=== PATIENT | female | born 1995 | race African-American/Black ===

== ENCOUNTER 2019-11-08 09:27 | Emergency (ER) | payer BC, SELFPAY ==
--- NOTE | 2019-11-08 09:39 | PC.NURSE ---
X-ray is being repaired--patient wanted a chest xray so she left prior to being seen.
== END 2019-11-08 09:38 | disposition left against medical advice (07) ==
LOC: EXPCOLL 09:36
PROVIDERS: Emergency Provider Nurse Practitioner
DX: Z53.21 Procedure and treatment not carried out due to patient leaving prior to being seen by health care provider (principal)
CPT/HCPCS: 99199

== ENCOUNTER 2019-11-08 10:33 | Emergency (ER) | payer BC, SELFPAY ==
--- NOTE | ~2019-11-08 | XR_ITS ---
EXAMINATION: XR chest 2V DATE: 11/08/2019 11:46 INDICATION: Left chest pain. TECHNIQUE: Frontal and lateral views of the chest were obtained. COMPARISON: Chest 2 views 08/14/2018, CT abdomen and pelvis 08/08/2018 FINDINGS: The chest demonstrates clear lungs without pneumonia, pleural effusion, or pneumothorax. Th e heart size is normal. IMPRESSION: 1. No acute cardiopulmonary disease. Reviewed, dictated and finalized at location A. AND DETONATOR
[2019-11-08 10:42] VITALS: BP 150/87; PULSE 68; RESP 16; TEMP 36.6; O2SAT 99
--- NOTE | 2019-11-08 10:47 | ED.CHESTPAIN ---
HPI - Chest Pain General Chief Complaint: Chest Pain Stated Complaint: left sided cp Time Seen by Provider: 11/08/19 10:41 Source: patient and RN notes reviewed Mode of arrival: ambulatory Limitations: no limitations History of Present Illness HPI narrative: Pt is a 24 y/o female who presents to the ED with c/o intermittent left-sided chest pain which began yesterday morning. She states she is currently experiencing chest pain in the ED bed. Pt reports the pain is located underneath her left breast, but is like a pressure sensation. She states whenever she takes a deep breath, the pain is aggravated and radiates to her left upper back. Pt denies taking any pain medication for her symptoms. She also denies a burning sensation in her chest which could be due to GERD. However, pt reports a mild cough, but denies SOB upon exertion, a fever, wheezing, dizziness, lightheadedness, ABD pain, BLE edema, or BLE pain. She reports blurry vision, but states it could be due to her stigmatism. Pt reports a PMHx of PCOS which she is currently on medication for. She denies being on any control. Pt also reports a PMHx of asthma and cholecystectomy. MD complaint: chest pain (left-sided) Pertinent past history: other (none) Onset (ago): day(s) (yesterday morning) Timing of current episode: episodic Prior episodes: No Onset: during rest Pain location: left chest (located underneath left breast) Pain radiation: back (left upper back) Quality: other (pressure) Relieving factors: nothing Exacerbating factors: nothing Associated symptoms: other (mild cough) Related Data Home Medications Medication Instructions Recorded Confirmed albuterol sulfate 2 puff INHALATION QID PRN 08/10/19 11/08/19 metformin 2,000 mg PO DAILY 11/08/19 11/08/19 Allergies Allergy/AdvReac Type Severity Reaction Status Date / Time Fish Containing Products Allergy Severe Anaphylactic Verified 11/08/19 09:32 Shock nicardipine Allergy Mild RASH Verified 11/08/19 09:32 Review of Systems Review of Systems: All systems reviewed & are unremarkable except as noted in HPI and below Constitutional: Constitutional: Denies fever(s) Cardiovascular: Cardiovascular: Reports chest pain (left-sided chest pain located underneath left breast) and Denies leg edema (BLE) Respiratory: Respiratory: Reports cough (mild), Denies dyspnea (upon exertion) and Denies wheezing Gastrointestinal: Gastrointestinal: Denies abdominal pain Musculoskeletal: Musculoskeletal: Denies other (BLE pain) Neurologic: Denies dizziness and Denies other (lightheadedness) [facility] Past Medical History Medical History (Updated 11/08/19 @ 14:28 by Stacey Marcus MD) Asthma Gallbladder disease PCOS (polycystic ovarian syndrome) Surgical History Surgical History (Updated 08/10/19 @ 17:01 by Denise Wilcox) History of cholecystectomy Social History Social History (Updated 08/10/19 @ 17:02 by Denise Wilcox) Smoking status: Never smoker Alcohol intake: current Substance use: never 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 obese HEAD: Normocephalic, atraumatic EYES: PERRLA and EOMI, conjunctiva clear without discharge THROAT:Mucous membranes moist, Oropharynx normal without erythema, exudate, peritonsillar swelling or fluctuance NECK: Supple, without lymphadenopathy or mass RESPIRATORY: No respiratory distress, Airway patent, Respirations non-labored, Clear to auscultation without rales, rhonchi or wheeze, left anterior chest tenderness HEART: Regular rate and rhythm. No murmur heard. Normal peripheral pulses. ABDOMEN: Soft, nontender, nondistended, normal active bowel sounds. No masses. No rebound or guarding, No organomegaly. EXTREMITIES: No edema, normal strength with full range of gilda
--- NOTE | 2019-11-08 10:56 | ECG_ITS ---
Measurements Intervals [place] Rate: 70 P: -1 MS: 159 QRS: 43 QRSD: 98 T: 7 QT: 359 QTc: 388 Interpretive Statements SINUS RHYTHM BASELINE ARTIFACT- V1 NORMAL ECG Electronically Signed On 11-08-2019 11:45:24 SOLUTION SALES SENIOR EXECUTIVE by Martinez Ray D.O.
[2019-11-08 11:20] LABS: Basophils Percent Auto 0.3 % (0.2-1.2); Eosinophils Absolute Auto 0.3 K/mm3 (0-0.3); Eosinophils Percent Auto 5.1 % (0-4.4); Hematocrit 43.1 % (37.0-47.0); Hemoglobin 13.7 g/dL (12.0-15.0); Immature Granulocyte Absolute 0.02 K/mm3 (0.00-0.031); Immature Granulocyte Percent A 0.3 % (0-0.5); Lymphocytes Absolute Auto 2.84 K/mm3 (0.9-3.2); Lymphocytes Percent Auto 45.2 % (18.3-44.2); Mean Corpuscular HGB Conc 31.8 g/dl (32-36); Mean Corpuscular Hemoglobin 26.7 pg (26-34); Mean Platelet Volume 9.1 fl (7.4-10.4); Monocytes Absolute Auto 0.4 K/mm3 (0.1-0.6); Monocytes Percent Auto 5.9 % (2.6-8.5); Neutrophils Absolute Auto 2.7 K/mm3 (1.3-6.7); Neutrophils Percent Auto 43.2 % (45.5-73.1); Platelet Count Result 278 k/mm3 (150-375); Red Blood Count 5.13 M/mm3 (4.2-5.4); Red Cell Distribution Width 13.6 % (11.5-14.5); White Blood Count 6.3 K/mm3 (4.5-10.0)
[2019-11-08 11:30] LABS: Partial Thromboplastin Time 26.9 SECONDS (22.3-36.8); Prothrombin Time 12.7 Seconds (11.1-14.7)
[2019-11-08 11:36] LABS: D Dimer 0.27 ug/mL (<0.48)
[2019-11-08 11:37] LABS: Blood Urea Nitrogen 11 mg/dL (7-17); Calcium 9.4 mg/dL (8.4-10.2); Carbon Dioxide 25 mmol/L (22-30); Chloride 102 mmol/L (98-107); Estimated CRCL calculation 120 ml/min; Estimated Glomerular Filt Rate > 60; Glucose 101 mg/dL (65-105); Potassium 4.2 mmol/L (3.4-5.0); Sodium 139 mmol/L (137-145)
[2019-11-08 11:48] LABS: Troponin I < 0.012 ng/mL (0.000-0.034)
[2019-11-08 13:35] VITALS: BP 133/85; PULSE 68; RESP 20; O2SAT 100
[2019-11-08 14:12] LABS: Troponin I < 0.012 ng/mL (0.000-0.034)
[2019-11-08 14:41] VITALS: BP 121/93; PULSE 66; RESP 14; O2SAT 99
== END 2019-11-08 14:42 | disposition home or self-care (01) ==
PROVIDERS: Emergency Provider General Practice
DX: R07.89 Other chest pain (principal); J45.909 Unspecified asthma, uncomplicated
CPT/HCPCS: 36415; 71046; 80048; 84484; 85025; 85380; 85610; 85730; 93005; 99284

== ENCOUNTER 2019-11-22 17:59 | Emergency (ER) | payer BC, SELFPAY ==
--- NOTE | ~2019-11-22 | CT_ITS ---
EXAMINATION: CT BRAIN W/O DATE: 11/22/2019 18:25 INDICATION: Headache after trauma TECHNIQUE: Computed tomography (CT) of the head was performed without intravenous contrast. The dose- length product was 605.33 mGy-cm. The mA was adjusted according to patient size. Iterative reconstruc tion technique was employed. COMPARISON: No prior studies for comparison. FINDINGS: Normal brain parenchymal volume for age. Normal sofia-white differentiation. No acute intrac ranial hemorrhage, infarction, mass or mass effect. No ventriculomegaly or midline shift. Midline sagittal images demonstrate a normal corpus callosum, c raniovertebral junction and sella turcica. Basilar cisterns are patent. There is mucosal thickening of the left maxillary, ethmoid and frontal sinuses. No depressed skull fr actures. Mastoids are pneumatized. IMPRESSION: 1. No acute intracranial abnormality. 2: Sinusitis. Reviewed, dictated and finalized at location A.
[2019-11-22 18:08] VITALS: BP 146/88; PULSE 86; RESP 19; TEMP 36.8; O2SAT 99
--- NOTE | 2019-11-22 18:08 | ED.SYNCOPE ---
HPI - Syncope General Chief Complaint: Syncope Stated Complaint: Syncope Time Seen by Provider: 11/22/19 18:02 Source: patient Mode of arrival: ambulatory Limitations: no limitations History of Present Illness HPI narrative: A 24 y/o female presents to the ED with c/o syncope. She states that today she was sitting watching television with her mother when she suddenly blacked out. Pt adds that she was laughing hysterically when she lost consciousness. She notes that she woke up on the floor and hit her head on a coffee table. Pt has no prior history of syncope. She reports AMADOR and nausea. Her LNMP was 11/23/2019. She has a PMHx of asthma and is a nonsmoker. complaint: loss of consciousness Onset (ago): hour(s) (Today) Prodromal symptoms: none Witnessed: Yes - by Bystander (Mother) Context: at rest (Laughing) Injuries sustained associated with event: head Current symptoms: headache and nausea Related Data Home Medications Medication Instructions Recorded Confirmed albuterol sulfate 2 puff INHALATION QID PRN 08/10/19 11/08/19 Allergies Allergy/AdvReac Type Severity Reaction Status Date / Time Fish Containing Products Allergy Severe Anaphylactic Verified 11/22/19 18:12 Shock Review of Systems Review of Systems: All systems reviewed & are unremarkable except as noted in HPI and below Gastrointestinal: Gastrointestinal: Reports nausea Neurologic: Reports headache(s) and Reports other (HI, syncope) [facility] Past Medical History Medical History Asthma Gallbladder disease PCOS (polycystic ovarian syndrome) Surgical History Surgical History History of cholecystectomy Social History Social History Smoking status: Never smoker Alcohol intake: current Substance use: never 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 Musculoskeletal: Normal range of motion, nontender back Neurologic: Alert and oriented ?3, JAVA LEAD DEVELOPER is normal as tested, no gross motor deficit Course Course Emergency Course: Stable, denying any symptoms Vital Signs Vital signs: Vital Signs Temperature 36.8 C 11/22/19 18:08 Pulse Rate 86 11/22/19 18:08 Respiratory Rate 19 11/22/19 18:08 Blood Pressure 146/88 H 11/22/19 18:08 Pulse Oximetry 99 11/22/19 18:08 Temperature 36.8 C 11/22/19 18:08 Pulse Rate 86 11/22/19 18:08 Respiratory Rate 19 11/22/19 18:08 Blood Pressure 146/88 H 11/22/19 18:08 Pulse Oximetry 99 11/22/19 18:08 MDM - Syncope MDM Narrative Medical decision making narrative: Laughing inducing vasovagal syncope is my concern. Patient does not have any risk factor for coronary artery disease or neurologic disease. The syncope occurred immediately after strenuous laughing. Lasted for 1 to 2 seconds then resolved. Labs, CT head ordered. Further plan to follow Lab Data Result diagrams: 11/22/19 18:53 11/22/19 18:53 Labs: Lab Results 11/22/19 11/22/19 11/22/19 Range/Units 18:43 18:53 18:53 WBC
--- NOTE | 2019-11-22 18:13 | ECG_ITS ---
Measurements Intervals [place] Rate: 81 P: 34 MD: 176 QRS: 33 QRSD: 98 T: -1 QT: 356 QTc: 414 Interpretive Statements SINUS RHYTHM MINIMAL Q WAVES- INFERIOR LEADS BORDERLINE T WAVE ABNORMALITY- INFERIOR LEADS BORDERLINE ECG Electronically Signed On 11-22-2019 21:06:46 CDT by Martinez Ray D.O.
[2019-11-22 18:54] LABS: Add Urine Microscopic? YES; Appearance Urine Clear (Clear); Bacteria Urine Trace /hpf; Bilirubin Urine Negative (Negative); Blood Urine Negative (Negative); Color Urine Yellow (Yellow); Glucose Urine UA Negative (Negative); Ketones Urine Negative (Negative); Leukocyte Esterase Ur Negative LEU/UL (Negative); Mucus Urine Rare /lpf; Nitrate Urine Negative (Negative); Protein Urine Negative (Negative); RBC Urine 0-2 /hpf (0-2); Specific Grav Ur 1.027 (1.001-1.035); Squamous Epithelial Cell Urine Many /hpf (Few); Urobilinogen Urine Negative mg/dL (<2.0); WBC Urine 0-3 /hpf
[2019-11-22 18:59] LABS: Basophils Percent Auto 0.4 % (0.2-1.2); Eosinophils Absolute Auto 0.3 K/mm3 (0-0.3); Immature Granulocyte Absolute 0.01 K/mm3 (0.00-0.031); Immature Granulocyte Percent A 0.1 % (0-0.5); Lymphocytes Absolute Auto 3.79 K/mm3 (0.9-3.2); Lymphocytes Percent Auto 45.8 % (18.3-44.2); Mean Corpuscular HGB Conc 32.5 g/dl (32-36); Mean Corpuscular Hemoglobin 26.9 pg (26-34); Mean Corpuscular Volume 82.8 fl (80-100); Mean Platelet Volume 9.1 fl (7.4-10.4); Monocytes Absolute Auto 0.6 K/mm3 (0.1-0.6); Monocytes Percent Auto 7.4 % (2.6-8.5); Neutrophils Absolute Auto 3.6 K/mm3 (1.3-6.7); Neutrophils Percent Auto 43.3 % (45.5-73.1); Platelet Count Result 288 k/mm3 (150-375); Red Blood Count 4.83 M/mm3 (4.2-5.4); Red Cell Distribution Width 13.4 % (11.5-14.5); White Blood Count 8.3 K/mm3 (4.5-10.0)
[2019-11-22 19:11] LABS: Alanine Aminotransferase 36 U/L (4-35); Albumin Level 4.2 g/dL (3.5-5.1); Alkaline Phosphatase 56 U/L (38-126); Aspartate Amino Transferase 34 U/L (14-36); Bilirubin,Total 0.7 mg/dL (0.2-1.3); Blood Urea Nitrogen 14 mg/dL (7-17); Calcium 9.2 mg/dL (8.4-10.2); Carbon Dioxide 23 mmol/L (22-30); Chloride 106 mmol/L (98-107); Estimated CRCL calculation 125 ml/min; Estimated Glomerular Filt Rate > 60; Glucose 93 mg/dL (65-105); Potassium 4.1 mmol/L (3.4-5.0); Sodium 138 mmol/L (137-145)
[2019-11-22 19:51] VITALS: BP 130/77; PULSE 83; RESP 17; O2SAT 99
== END 2019-11-22 19:52 | disposition home or self-care (01) ==
PROVIDERS: Emergency Provider Emergency Medicine
DX: S09.90XD Unspecified injury of head, subsequent encounter (principal); J45.909 Unspecified asthma, uncomplicated; W22.03XA Walked into furniture, initial encounter
CPT/HCPCS: 36415; 70450; 80053; 81001; 81025; 85025; 93005; 99284

== ENCOUNTER 2020-03-08 15:51 | Outpatient (CLI) | payer BC, SELFPAY ==
--- NOTE | ~2020-03-08 | US_ITS ---
EXAMINATION: US OB <= 14 weeks fetus DATE: 03/08/2020 16:24 INDICATION: viability assessment during first trimester TECHNIQUE: Real-time pelvic transabdominal and transvaginal ultrasound was performed. COMPARISON: None. FINDINGS: The uterus measures 13.4 x 6.2 x 6.1 cm. There is an intrauterine gestational sac. A yolk sac is identified. heart motion is identified measuring 159 beats per minute (bpm) by M-mode Do ppler. The crown rump length measures 4.2 cm , which correlates with an estimated gestational a ge of 11 weeks and 0 day(s) (+/-) 7 day(s). The ovaries are not visualized however no adnexal abnormality is seen. There is no free fluid in the pelvis. IMPRESSION: 1. Live intrauterine with an estimated gestational age of 11 weeks and 0 day(s) (+/-) 7 day (s) and an estimated delivery date of 09/27/2020. Reviewed, dictated and finalized at location A. IMPRESSION: 1. Live intrauterine with an estimated gestational age of 11 weeks an d 0 day(s) (+/-) 7 day(s) and an estimated delivery date of 09/27/2020.
== END 2020-03-08 15:52 | disposition home or self-care (01) ==
PROVIDERS: Visit Provider Obstetrics & Gynecology Gynecology
DX: Z36.9 Encounter for antenatal screening, unspecified (principal); Z3A.11 11 weeks gestation of pregnancy
CPT/HCPCS: 76801

== ENCOUNTER 2020-06-25 20:38 | Observation (INO) | payer BC, SELFPAY ==
[2020-06-25 20:54] VITALS: BP 128/62; PULSE 94
[2020-06-25 21:01] VITALS: BP 104/67; PULSE 98
[2020-06-25 21:15] VITALS: BP 132/65; PULSE 86
[2020-06-25 21:30] VITALS: BP 119/62; PULSE 86
[2020-06-25 21:33] VITALS: BMI 69.9
[2020-06-25 21:36] LABS: Add Urine Microscopic? YES; Appearance Urine Clear (Clear); Bilirubin Urine Negative (Negative); Blood Urine Negative (Negative); Color Urine Yellow (Yellow); Glucose Urine UA Negative (Negative); Ketones Urine Trace mg/dL (Negative); Leukocyte Esterase Ur Negative LEU/UL (Negative); Mucus Urine Rare /lpf; Nitrate Urine Negative (Negative); Protein Urine Negative (Negative); RBC Urine 0-2 /hpf (0-2); Specific Grav Ur 1.024 (1.001-1.035); Squamous Epithelial Cell Urine Many /hpf (Few); Urobilinogen Urine Negative mg/dL (<2.0); WBC Urine 0-3 /hpf
--- NOTE | 2020-06-25 22:06 | PC.NURSE ---
2037- pt came in c/o left side pain that happened for about 10 minutes today while she was shopping. no vaginal bleeding, good movement per mom, no current pain/contractions. pt states this happened about 2 weeks ago also while she was shopping and subsided 2138- called Dr. Burk. informed of pt admission. UA results reviewed. FHT reviewed. OK to d/c pt home. pt to f/u in office at regular scheduled appt.
--- NOTE | 2020-06-28 14:15 | P.PNOB_ITS ---
OB - Triage/Final Diagnosis Visit Information Reason for evaluation: other (cramping) Evaluation Laboratory results: Laboratory Tests 06/25/20 21:24 Urine Color Yellow Urine Appearance Clear Urine pH 5.0 Ur Specific [place] 1.024 Urine Protein Negative Urine Glucose (UA) Negative Urine Ketones Trace Ur Blood (Man) Negative Urine Nitrate Negative Urine Bilirubin Negative Urine Urobilinogen Negative Leukocyte Esterase Rfl Negative Urine RBC 0-2 Urine WBC 0-3 Ur Squamous Epith Cells Many H Urine Mucus Rare
== END 2020-06-25 21:55 | disposition home or self-care (01) ==
PROVIDERS: Admitting Provider Obstetrics & Gynecology Gynecology; Visit Provider Obstetrics & Gynecology Gynecology
DX: O26.899 Other specified pregnancy related conditions, unspecified trimester (principal); R10.9 Unspecified abdominal pain; Z3A.00 Weeks of gestation of pregnancy not specified
CPT/HCPCS: 81001; G0378; G0379

== ENCOUNTER 2020-08-03 13:00 | Outpatient (NON) | payer BC, SELFPAY ==
[2020-08-05 16:41] LABS: SARS-CoV-2 RNA PCR Negative
== END 2020-08-03 13:01 ==
LOC: ANHCOVIDDT 13:03
PROVIDERS: Visit Provider Obstetrics & Gynecology Gynecology
DX: R68.89 Other general symptoms and signs (principal); Z20.828 Contact with and (suspected) exposure to other viral communicable diseases
CPT/HCPCS: 87635; C9803; U0003

== ENCOUNTER 2020-09-04 12:30 | Outpatient (RCR) | payer BC, SELFPAY ==
[2020-08-26 18:01] VITALS: BP 113/57; PULSE 88
--- NOTE | ~2020-09-04 | US_ITS ---
EXAMINATION: US OB limited w BPP EXAM DATE: 08/26/2020 17:57 INDICATION: AXEL and BPP. Gestational diabetes. 3rd trimester. TECHNIQUE: Pelvic obstetrical transabdominal sonogram was performed by a technologist. There are mu ltiple grayscale and Doppler images available for interpretation. There are no earlier studies of th is gestation for comparison. FINDINGS: There is a single fetus identified in vertex presentation with a heart rate of 163 beats pe r minute. The placenta is located in the fundal position. There is no sonographic evidence of retrop lacental hemorrhage identified. 11.0 BIOPHYSICAL PROFILE (performed by the technologist) breathing (30 sec sustained breathing in 30 minutes): 2 out of 2 movement (3 gross body movements in 30 minutes): 2 out of 2 tone (one episode of tbuejyt-wjmqraljy-nakutnx limb movement): 2 out of 2 Amniotic fluid pocket (2 cm): 2 out of 2 Total score: 8 out of 8 IMPRESSION: 1. Single fetus with heart rate of 163 bpm. 2. Normal biophysical profile score of 8 out of 8. Reviewed, dictated and finalized at location A. GRAPH SERVICE CLERK
--- NOTE | ~2020-09-04 | US_ITS ---
EXAMINATION: US OB BPP wo non-stress DATE: 09/04/2020 13:43 INDICATION: tachycardia, gestational diabetes, third trimester TECHNIQUE: Real-time pelvic ultrasound was performed. The interpreting radiologist was not present fo r the study. COMPARISON: 08/26/2020 FINDINGS: There is a single living fetus in vertex presentation. The placenta is fundal. heart rate is 18 1 beats per minute (bpm). On some images, there appears to be a hydrocele in the right scrotum. Biophysical profile performed by the technologist: breathing (30 sec sustained breathing in 30 minutes): 2 out of 2 movement (3 gross body movements in 30 minutes): 2 out of 2 tone (one episode of zobjyua-bakxhpphu-qkjvirc limb movement): 2 out of 2 Amniotic fluid pocket (2 cm): 2 out of 2 Total score: 8 out of 8 IMPRESSION: 1. Single living fetus in vertex presentation. 2. Biophysical profile 8 out of 8. 3. heart rate average of 181 bpm. 4. Possible hydrocele. Reviewed, dictated and finalized at location A. ICAL AUDITOR
[2020-09-04 13:08] VITALS: BP 133/69; PULSE 95
--- NOTE | 2020-09-04 14:06 | PC.NURSE ---
SPoke with Dr. Burk, NST reactive and BPP 04/20. Orders to discharge to home.
== END 2020-09-16 07:54 | disposition home or self-care (01) ==
LOC: ANHOBOP 12:30
PROVIDERS: Visit Provider Obstetrics & Gynecology Gynecology
DX: O24.419 Gestational diabetes mellitus in pregnancy, unspecified control (principal); Z3A.35 35 weeks gestation of pregnancy; Z3A.37 37 weeks gestation of pregnancy
CPT/HCPCS: 59025; 76815; 76819

== ENCOUNTER 2020-09-09 15:37 | Inpatient (IN) | payer BC, SELFPAY ==
[2020-09-09] VITALS (14 sets, daily range): BP systolic 118–159; BP diastolic 50–105; PULSE 77–126; TEMP 36.6–36.9; BMI 70.9
--- NOTE | 2020-09-09 15:37 | LDADM ---
This patient, Joleen Deutsch, was admitted to Labor/Delivery/Recovery 108 on 09/09/20 at 15:37. Plans for labor, pain management and were discussed with patient. Patient/family oriented to hospital policies and general routines including ID bracelet, bed and alarms, visiting hours, pain management, procedures, bathroom and other care routines, personal items, smoking policy, room service/diet and guest tray routines, security routines, and visiting hours. Patient/Family are encouraged to report perceived risks to care and to ask questions if they do not understand what they are told or what they should do. See OBIX for further documentation.
[2020-09-09 16:40] LABS: Basophils Percent Auto 0.2 % (0.2-1.2); Eosinophils Absolute Auto 0.2 K/mm3 (0-0.3); Eosinophils Percent Auto 2.4 % (0-4.4); Hematocrit 35.7 % (37.0-47.0); Hemoglobin 11.7 g/dL (12.0-15.0); Immature Granulocyte Absolute 0.03 K/mm3 (0.00-0.031); Immature Granulocyte Percent A 0.3 % (0-0.5); Lymphocytes Absolute Auto 2.33 K/mm3 (0.9-3.2); Lymphocytes Percent Auto 23.6 % (18.3-44.2); Mean Corpuscular HGB Conc 32.8 g/dl (32-36); Mean Corpuscular Hemoglobin 26.7 pg (26-34); Mean Corpuscular Volume 81.3 fl (80-100); Mean Platelet Volume 9.6 fl (7.4-10.4); Monocytes Absolute Auto 0.5 K/mm3 (0.1-0.6); Monocytes Percent Auto 5.1 % (2.6-8.5); Neutrophils Absolute Auto 6.7 K/mm3 (1.3-6.7); Neutrophils Percent Auto 68.4 % (45.5-73.1); Platelet Count Result 317 k/mm3 (150-375); Red Blood Count 4.39 M/mm3 (4.2-5.4); White Blood Count 9.9 K/mm3 (4.5-10.0)
[2020-09-09] MEDS: LACTATED RINGERS 1,000 ML 125 ML IV CONT (16:45)
[2020-09-09 16:55] LABS: Alanine Aminotransferase 18 U/L (4-35); Albumin Level 3.6 g/dL (3.5-5.1); Alkaline Phosphatase 161 U/L (38-126); Anion Gap 8 mmol/L (8-16); Aspartate Amino Transferase 30 U/L (14-36); Bilirubin,Total 0.8 mg/dL (0.2-1.3); Blood Urea Nitrogen 9 mg/dL (7-17); Calcium 9.3 mg/dL (8.4-10.2); Carbon Dioxide 21 mmol/L (22-30); Chloride 104 mmol/L (98-107); Estimated CRCL calculation 166 ml/min; Estimated Glomerular Filt Rate > 60; Glucose 93 mg/dL (65-105); Potassium 4.2 mmol/L (3.4-5.0); Sodium 133 mmol/L (137-145); Uric Acid 5.7 mg/dL (2.5-7.5)
[2020-09-09] MEDS: DINOPROSTONE 10 MG VAG INSERT VAGINAL (17:11)
[2020-09-09 18:04] LABS: Add Urine Microscopic? YES; Appearance Urine Cloudy (Clear); Bacteria Urine Trace /hpf; Bilirubin Urine Negative (Negative); Blood Urine Negative (Negative); Color Urine Yellow (Yellow); Glucose Urine UA Negative (Negative); Ketones Urine Negative (Negative); Leukocyte Esterase Ur Negative LEU/UL (NEGATIVE); Mucus Urine Rare /lpf; Nitrate Urine Negative (Negative); Protein Urine Negative (Negative); RBC Urine 0-2 /hpf (0-2); Specific Grav Ur 1.013 (1.001-1.035); Squamous Epithelial Cell Urine Many /hpf (Few); Urobilinogen Urine Negative mg/dL (<2.0); WBC Urine 0-3 /hpf (0-3)
--- NOTE | 2020-09-09 18:47 | WPDANESEPP ---
Anes - Eval Pre Procedure Procedure: Labor epidural Date/Time: 09/09/20 18:47 Surgeon: Bhargavi Preop Diagnosis: pain during labor Pre Op Diagnosis: IOL Patient Data Age: 25 Gender: F Height: 1.56 m Weight: 173 kg Last Vital Signs Temp 36.6 C 09/09/20 17:00 Pulse 88 09/09/20 18:46 BP 140/75 09/09/20 18:46 Allergies Allergy/AdvReac Type Severity Reaction Status Date / Time Fish Containing Products Allergy Severe Anaphylactic Verified 09/04/20 13:51 Shock Home Medications Medication Instructions Recorded Confirmed Type albuterol sulfate 2 puff INHALATION QID PRN 08/10/19 09/09/20 History Novolin N NPH U-100 Insulin 92 unit SUBCUT HS 06/25/20 09/09/20 History [id number] 1 tablet PO DAILY 09/09/20 09/09/20 History [] Laboratory Tests 09/09/20 09/09/20 09/09/20 16:32 16:32 16:34 WBC 9.9 K/mm3 K/mm3 (4.5-10.0) RBC 4.39 M/mm3 M/mm3 (4.2-5.4) Hgb 11.7 g/dL L g/dL (12.0-15.0) Hct 35.7 % L % (37.0-47.0) MCV 81.3 fl fl (80-100) MCH 26.7 pg pg (26-34) MCHC 32.8 g/dl g/dl (32-36) RDW 15.0 % H % (11.5-14.5) Plt Count 317 k/mm3 k/mm3 (150-375) MPV 9.6 fl fl (7.4-10.4) Immature Gran % (Auto) 0.3 % % (0-0.5) Neut % (Auto) 68.4 % % (45.5-73.1) Lymph % (Auto) 23.6 % % (18.3-44.2) [place] % (Auto) 5.1 % % (2.6-8.5) Eos % (Auto) 2.4 % % (0-4.4) Baso % (Auto) 0.2 % % (0.2-1.2) Lymph # (Auto) 2.33 K/mm3 K/mm3 (0.9-3.2) [place] # (Auto) 0.5 K/mm3 K/mm3 (0.1-0.6) Eos # (Auto) 0.2 K/mm3 K/mm3 (0-0.3) Baso # (Auto) 0.0 K/mm3 K/mm3 (0.0-0.1) Abs Immat Gran (auto) 0.03 K/mm3 K/mm3 (0.00-0.031) Absolute Neuts (auto) 6.7 K/mm3 K/mm3 (1.3-6.7) Absolute Nucleated RBC 0.0 K/mm3 K/mm3 (0.0-0.012) Nucleated RBC % 0.0 % % (0.0-0.2) Sodium 133 mmol/L L mmol/L (137-145) Potassium 4.2 mmol/L mmol/L (3.4-5.0) Chloride 104 mmol/L mmol/L (98-107) Carbon Dioxide 21 mmol/L L mmol/L (22-30) Anion Gap 8 mmol/L mmol/L (8-16) BUN 9 mg/dL D mg/dL (7-17) Creatinine 0.70 mg/dL mg/dL (0.7-1.0) Estim Creat Clear Calc 166 ml/min ml/min Estimated GFR > 60 (59 - ) Glucose 93 mg/dL mg/dL (65-105) Uric Acid 5.7 mg/dL mg/dL (2.5-7.5) Calcium 9.3 mg/dL mg/dL (8.4-10.2) Total Bilirubin 0.8 mg/dL mg/dL (0.2-1.3) AST 30 U/L U/L (14-36) ALT 18 U/L U/L (4-35) Alkaline Phosphatase 161 U/L H U/L (38-126) Total Protein 7.0 g/dL g/dL (6.3-8.2) Albumin 3.6 g/dL g/dL (3.5-5.1) Urine Color Urine Appearance Urine pH Ur Specific [place] Urine Protein Urine Glucose (UA) Urine Ketones Ur Blood (Man) Urine Nitrate Urine Bilirubin Urine Urobilinogen Ur Leukocyte Esterase Urine RBC Urine WBC Ur Squamous Epith Cells Urine Bacteria Urine Mucus RPR Pending Blood Type Antibody Screen 09/09/20 09/09/20 16:42 17:55 WBC RBC Hgb Hct MCV MCH MCHC RDW Plt Count MPV Immature Gran % (Auto) Neut % (Auto) Lymph % (Auto) [place] % (Auto) Eos % (Auto) Baso % (Auto) Lymph # (Auto) [place] # (Auto) Eos # (Auto) Baso # (Auto) Abs Immat Gran (auto) Absolute Neuts (auto) Absolute Nucleated RBC Nucleated RBC %
[2020-09-09 21:23] LABS: Glucose Point of Care 75 (65-105)
[2020-09-10] VITALS (27 sets, daily range): BP systolic 97–167; BP diastolic 51–94; PULSE 69–111; TEMP 36.2–37
[2020-09-10 03:21] LABS: Glucose Point of Care 78 (65-105)
[2020-09-10 03:21] LABS: Glucose Point of Care 79 (65-105)
[2020-09-10 03:21] LABS: Glucose Point of Care 69 (65-105)
[2020-09-10] MEDS: OXYTOCIN 30 UNITS/NS 500 ML 30 UNITS/500 ML BAG IV CONT (06:48)
--- NOTE | 2020-09-10 07:45 | WPDOBADMIT ---
Obstetrics - Admit Note Admission Note: record reviewed. No pertinent additions to the history and/or any subsequent changes in the physical findings that are not consistent with the expected course of the were found. Additions to the history and/or subsequent changes in the physical findings follow. Here from office for MIL. NST for GDMA2 was nonreactive with minimal variability and 3 late decels. Recommend delivery. Cervadil overnight. FHTs improved and have periods of reactivity. Cervix still Cl/50 so plan pitocin.
[2020-09-10 08:36] LABS: Glucose Point of Care 85 (65-105)
[2020-09-10 10:49] LABS: Rapid Plasma Reagin Non-Reactive (NonReactive)
[2020-09-10 14:47] LABS: Glucose Point of Care 83 (65-105)
[2020-09-10] MEDS: DINOPROSTONE 10 MG VAG INSERT VAGINAL (18:31)
[2020-09-10 18:58] LABS: Glucose Point of Care 137 (65-105)
[2020-09-10] MEDS: INSULIN HUMAN NPH (*BKC) 100 UNITS/ML 20 UNITS SUB-Q (21:54)
[2020-09-10 23:10] LABS: Glucose Point of Care 90 (65-105)
[2020-09-11] VITALS (239 sets, daily range): BP systolic 80–153; BP diastolic 25–95; PULSE 29–138; TEMP 36–37.3; O2SAT 94–100
[2020-09-11 05:55] LABS: Glucose Point of Care 92 (65-105)
--- NOTE | 2020-09-11 06:53 | P.PNOB_ITS ---
OB - PN: Subj Subjective Date/time seen: 09/11/20 06:53 Patient comments: no complaints OB - PN: Obj Data Labs CBC & Chem 7: 09/09/20 16:32 09/09/20 16:34 Labs: Laboratory Results - last 24 hr 09/09/20 09/10/20 09/10/20 16:32 08:33 14:43 POC Capillary Glucose 85 83 RPR Non-reactive 09/10/20 09/10/20 09/11/20 18:39 23:07 02:52 POC Capillary Glucose 137 H 90 92 RPR OB - PN A/P Assessment and Plan (1) 38 weeks gestation of : Code(s): Z3A.38 - 38 weeks gestation of Status: Acute (2) Encounter for induction of labor: Code(s): Z34.90 - Encounter for supervision of normal , unspecified, unspecified trimester Status: Acute Assessment and Plan: now 1 cm/th/-3 AROM with clear fluid FHTs reactive through much of day with random tachycardia runs and random varible decels Start pitocin (3) Gestational diabetes: Code(s): O24.419 - Gestational diabetes mellitus in , unspecified control Status: Acute (4) Morbid obesity with BMI of 70 and over, adult: Code(s): E66.01 - Morbid (severe) obesity due to excess calories; Z68.45 - Body mass index [BMI] 70 or greater, adult Status: Acute Time Spent With Patient Time: Total time spent is greater than 50% in coordination of care (as docum ented) at patient's floor/unit and/or counseling patient:
[2020-09-11 07:10] LABS: Glucose Point of Care 138 (65-105)
[2020-09-11] MEDS: LACTATED RINGERS 1,000 ML 125 ML IV CONT ×4 (08:10→23:35)
[2020-09-11] MEDS: OXYTOCIN 30 UNITS/NS 500 ML 30 UNITS/500 ML BAG IV CONT (08:10)
--- NOTE | 2020-09-11 09:27 | WPDANESEPP ---
Anes - Eval Pre Procedure Procedure: labor epidural Date/Time: 09/11/20 09:27 Surgeon: Bhargavi Preop Diagnosis: Abd pain with contractions Pre Op Diagnosis: IOL Patient Data Age: 25 Gender: F Height: 5 ft 1.5 in Weight: 173 kg Last Vital Signs Temp 98.9 F 09/11/20 02:51 Pulse 86 09/11/20 09:15 BP 118/67 09/11/20 09:15 Allergies Allergy/AdvReac Type Severity Reaction Status Date / Time Fish Containing Products Allergy Severe Anaphylactic Verified 09/04/20 13:51 Shock Home Medications Medication Instructions Recorded Confirmed Type albuterol sulfate 2 puff INHALATION QID PRN 08/10/19 09/09/20 History Novolin N NPH U-100 Insulin 92 unit SUBCUT HS 06/25/20 09/09/20 History rzjopxtv-qxh-Wn-FA 1 tablet PO DAILY 09/09/20 09/09/20 History [] Laboratory Tests 09/09/20 09/10/20 09/10/20 16:32 14:43 18:39 POC Capillary Glucose 83 mg/dl mg/dl 137 mg/dl H mg/dl (65-105) (65-105) RPR Non-reactive (NonReactive) 09/10/20 09/11/20 09/11/20 23:07 02:52 07:03 POC Capillary Glucose 90 mg/dl mg/dl 92 mg/dl mg/dl 138 mg/dl H mg/dl (65-105) (65-105) (65-105) RPR Patient hx anesthesia problems: none Family hx anesthesia problems: none PMFSH Past Medical History Medical History Asthma Gallbladder disease Gestational diabetes Morbid obesity with BMI of 70 and over, adult PCOS (polycystic ovarian syndrome) Surgical History Surgical History History of cholecystectomy Family History Family History Father Diabetes mellitus Mother Diabetes mellitus Sibling Diabetes mellitus Asthma Grandparent Lung cancer History of heart transplant Social History Social History Smoking status: Never smoker Second hand tobacco smoke exposure: No Alcohol intake: current Substance use: never 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
[2020-09-11 10:48] LABS: Glucose Point of Care 127 (65-105)
[2020-09-11] MEDS: SODIUM CHLORIDE 0.9% IV 300 ML 600 ML I-UTERINE (11:48)
[2020-09-11 14:15] LABS: Glucose Point of Care 122 (65-105)
[2020-09-11 18:02] LABS: Glucose Point of Care 106 (65-105)
[2020-09-11 18:02] LABS: Glucose Point of Care 99 (65-105)
[2020-09-11 22:11] LABS: Glucose Point of Care 84 (65-105)
[2020-09-12] VITALS (281 sets, daily range): BP systolic 40–165; BP diastolic 26–131; PULSE 25–139; TEMP 36.5–37.6; O2SAT 65–100
[2020-09-12] MEDS: AMPICILLIN 2 GM/NS 100 ML 2 GM/100 ML BAG IVPB (01:22)
[2020-09-12 02:34] LABS: Glucose Point of Care 97 (65-105)
[2020-09-12] MEDS: AMPICILLIN 1 GM/NS 50 ML 1 GM/50 ML BAG IVPB ×4 (05:18→22:14)
[2020-09-12 05:31] LABS: Glucose Point of Care 104 (65-105)
--- NOTE | 2020-09-12 07:40 | PM.OBPNVD ---
OB - PN: Subj Subjective Date/time seen: 09/12/20 07:40 Interval history: Epidural not working well. Patient in pain OB - PN: Obj Data Labs CBC & Chem 7: 09/09/20 16:32 09/09/20 16:34 Labs: Laboratory Results - last 24 hr 09/11/20 09/11/20 09/11/20 10:40 14:13 17:09 POC Capillary Glucose 127 H 122 H 99 09/11/20 09/11/20 09/12/20 17:58 22:03 02:26 POC Capillary Glucose 106 84 97 09/12/20 05:28 POC Capillary Glucose 104 OB - PN A/P Assessment and Plan (1) Encounter for induction of labor: Code(s): Z34.90 - Encounter for supervision of normal , unspecified, unspecified trimester Status: Acute Assessment and Plan: slow progress overnight will have epidual redosed continue pitocin FHTS reassuring (2) 38 weeks gestation of : Code(s): Z3A.38 - 38 weeks gestation of Status: Acute (3) Gestational diabetes: Code(s): O24.419 - Gestational diabetes mellitus in , unspecified control Status: Acute (4) Morbid obesity with BMI of 70 and over, adult: Code(s): E66.01 - Morbid (severe) obesity due to excess calories; Z68.45 - Body mass index [BMI] 70 or greater, adult Status: Acute Time Spent With Patient Time: Total time spent is greater than 50% in coordination of care (as documented) at patient's floor/unit and/or counseling patient: Exam Narrative: Exam Narrative: cervix /-2
[2020-09-12] MEDS: ONDANSETRON INJ 4 MG/2 ML VIAL IV PUSH ×3 (07:59→19:31)
[2020-09-12] MEDS: fentaNYL CITRATE INJ (*CRX) 100 MCG/2 ML VIAL IV PUSH (08:05)
[2020-09-12 08:16] LABS: Glucose Point of Care 127 (65-105)
[2020-09-12] MEDS: LACTATED RINGERS 1,000 ML 125 ML IV CONT ×2 (08:38→16:28)
[2020-09-12] MEDS: INSULIN HUMAN REGULAR (*BKC) 100 UNITS in SODIUM CHLORIDE 0.9% IV 99 ML IV CONT (09:00)
[2020-09-12 10:40] LABS: Glucose Point of Care 131 (65-105)
[2020-09-12 11:38] LABS: Glucose Point of Care 122 (65-105)
[2020-09-12 13:00] LABS: Glucose Point of Care 114 (65-105)
[2020-09-12 13:52] LABS: Glucose Point of Care 108 (65-105)
[2020-09-12 14:52] LABS: Glucose Point of Care 107 (65-105)
[2020-09-12 17:11] LABS: Glucose Point of Care 68 (65-105)
[2020-09-12 17:11] LABS: Glucose Point of Care 79 (65-105)
[2020-09-12 19:31] LABS: Glucose Point of Care 72 (65-105)
[2020-09-12 19:31] LABS: Glucose Point of Care 70 (65-105)
[2020-09-12 20:28] LABS: Glucose Point of Care 67 (65-105)
[2020-09-12 21:50] LABS: Glucose Point of Care 68 (65-105)
[2020-09-12 22:54] LABS: Glucose Point of Care 75 (65-105)
[2020-09-13] VITALS (85 sets, daily range): BP systolic 109–157; BP diastolic 60–108; PULSE 54–100; RESP 14–28; TEMP 36.6–37.3; O2SAT 92–100
[2020-09-13 00:23] LABS: Glucose Point of Care 59 (65-105)
[2020-09-13 01:30] LABS: Glucose Point of Care 76 (65-105)
[2020-09-13] MEDS: AMPICILLIN 1 GM/NS 50 ML 1 GM/50 ML BAG IVPB ×2 (02:16→06:20)
[2020-09-13 02:36] LABS: Glucose Point of Care 65 (65-105)
[2020-09-13 05:56] LABS: Glucose Point of Care 73 (65-105)
[2020-09-13] MEDS: LACTATED RINGERS 1,000 ML 125 ML IV CONT (07:32)
--- NOTE | 2020-09-13 07:38 | WPDANESEPP ---
Anes - Eval Pre Procedure Procedure: c section Date/Time: 09/13/20 07:38 Surgeon: sunday Preop Diagnosis: failure to descend Pre Op Diagnosis: IOL Patient Data Age: 25 Gender: F Height: 1.56 m Weight: 173 kg Last Vital Signs Temp 37.2 C 09/13/20 07:00 Pulse 89 09/13/20 07:15 BP 157/77 H 09/13/20 07:15 Pulse Ox 100 09/12/20 17:00 Allergies Allergy/AdvReac Type Severity Reaction Status Date / Time Fish Containing Products Allergy Severe Anaphylactic Verified 09/04/20 13:51 Shock Home Medications Medication Instructions Recorded Confirmed Type albuterol sulfate 2 puff INHALATION QID PRN 08/10/19 09/09/20 History Novolin N NPH U-100 Insulin 92 unit SUBCUT HS 06/25/20 09/09/20 History [id number]-[id number] 1 tablet PO DAILY 09/09/20 09/09/20 History [] Laboratory Tests 09/12/20 09/12/20 09/12/20 08:13 10:34 11:29 POC Capillary Glucose 127 mg/dl H mg/dl 131 mg/dl H mg/dl 122 mg/dl H mg/dl (65-105) (65-105) (65-105) 09/12/20 09/12/20 09/12/20 12:48 13:49 14:49 POC Capillary Glucose 114 mg/dl H mg/dl 108 mg/dl mg/dl 107 mg/dl mg/dl (65-105) (65-105) (65-105) 09/12/20 09/12/20 09/12/20 15:51 17:08 18:24 POC Capillary Glucose 79 mg/dl mg/dl 68 mg/dl mg/dl 70 mg/dl mg/dl (65-105) (65-105) (65-105) 09/12/20 09/12/20 09/12/20 19:26 20:24 21:35 POC Capillary Glucose 72 mg/dl mg/dl 67 mg/dl mg/dl 68 mg/dl mg/dl (65-105) (65-105) (65-105) 09/12/20 09/13/20 09/13/20 22:42 00:17 01:17 POC Capillary Glucose 75 mg/dl mg/dl 59 mg/dl L* mg/dl 76 mg/dl mg/dl (65-105) (65-105) (65-105) 09/13/20 09/13/20 02:20 05:39 POC Capillary Glucose 65 mg/dl mg/dl 73 mg/dl mg/dl (65-105) (65-105) Patient hx anesthesia problems: none Family hx anesthesia problems: none PMFSH Past Medical History Medical History Asthma Gallbladder disease Gestational diabetes Morbid obesity with BMI of 70 and over, adult PCOS (polycystic ovarian syndrome) Surgical History Surgical History History of cholecystectomy Family History Family History Father Diabetes mellitus Mother Diabetes mellitus Sibling Diabetes mellitus Asthma Grandparent Lung cancer History of heart transplant Social History Social History Smoking status: Never smoker Second hand tobacco smoke exposure: No Alcohol intake: current Substance use: never 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
[2020-09-13 07:45] LABS: Glucose Point of Care 78 (65-105)
[2020-09-13] MEDS: ceFAZolin 3 GM/D5W 100 ML 100 ML IVPB (08:39)
--- NOTE | 2020-09-13 10:56 | PM.IMHP ---
H&P: HPI History of Present Illness Date/Time: 09/13/20 10:56 Chief Complaint: failure to progress Narrative: Joleen Deutsch is a 25 year old female G1 at 38 weeks here for MIL on admit. Patient with slow progress and now no progress. Patient was offered a csection last pm per Dr. Hernandez and patient declined and wished to continue attempting MIL. Cervix 7/80/-2 at last exam. Patient decided this am with no further change to proceed with csection. complicated by GDMA2 (vs B) and gestational HTN with nonreassuring heart tracing prior to admit in office. 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 Gender identity (if verbalized by the patient): Female Spiritual care concerns: No Meds Home Medications and Allergies Home Medications Medication Instructions Recorded Confirmed Type albuterol sulfate 2 puff INHALATION QID PRN 08/10/19 09/09/20 History Novolin N NPH U-100 Insulin 92 unit SUBCUT HS 06/25/20 09/09/20 History [id number] 1 tablet PO DAILY 09/09/20 09/09/20 History [] Allergies Allergy/AdvReac Type Severity Reaction Status Date / Time Fish Containing Products Allergy Severe Anaphylactic Verified 09/04/20 13:51 Shock Vital Signs Vital Signs - 24 hr 09/12/20 11:00 09/12/20 11:05 09/12/20 11:10 Temperature Pulse Rate 77 Respiratory Rate Blood Pressure 156/93 H Pulse Oximetry 98 98 99 09/12/20 11:15 09/12/20 11:20 12/31/20 11:25 Temperature Pulse Rate 78 Respiratory Rate Blood Pressure 131/48 L Pulse Oximetry 96 96 93 09/12/20 11:30 09/12/20 11:35 09/12/20 11:40 Temperature Pulse Rate 103 H Respiratory Rate Blood Pressure 148/59 H Pulse Oximetry 99 99 95 09/12/20 11:45 09/12/20 11:50 09/12/20 11:55 Temperature Pulse Rate 96 Respiratory Rate Blood Pressure 138/65 Pulse Oximetry 98 99 99 09/12/20 12:00 09/12/20 12:05 09/12/20 12:10 Temperature Pulse Rate Respiratory Rate Blood Pressure Pulse Oximetry 99 98 99 09/12/20 12:15 09/12/20 12:20 09/12/20 12:24 Temperature Pulse Rate 92 87 Respiratory Rate Blood Pressure 154/98 H 124/91 H Pulse Oximetry 99 99 09/12/20 12:25 09/12/20 12:27 09/12/20 12:30 Temperature Pulse Rate 90 91 Respiratory Rate Blood Pressure 147/52 H 155/70 H Pulse Oximetry 99 100 09/12/20 12:35 09/12/20 12:36 09/12/20 12:40 Temperature Pulse Rate 90 Respiratory Rate Blood Pressure 152/71 H Pulse Oximetry 100 100 09/12/20 12:42 09/12/20 12:44 09/12/20 12:45 Temperature Pulse Rate 102 H 96 88 Respiratory Rate Blood Pressure 112/77 136/72 143/68 H Pulse Oximetry 99 09/12/20 12:50 09/12/20 12:54 09/12/20 12:55 Temperature 98.1 F Pulse Rate Respiratory Rate Blood Pressure Pulse Oximetry 96 98 09/12/20 13:00 09/12/20 13:05 09/12/20 13:10 Temperature Pulse Rate 74 Respiratory Rate Blood Pressure 147/69 H Pulse Oximetry 100 100 100 09/12/20 13:15 09/12/20 13:20 09/12/20 13:25 Temperature Pulse Rate 69 Respiratory Rate Blood Pressure 148/77 H
--- NOTE | 2020-09-13 11:02 | PM.PROC ---
Procedure Note - Detailed Date of procedure: 09/13/20 Pre-op diagnosis: IOL IUP 38 wks Morbid obesity Failure to progress GDMA2 gestational HTN Post-op diagnosis: same Procedure performed: primary LTCS Description of procedure: The patient was taken to the operating room and placed in the dorsal supine position with a leftward tilt. Stable extenders are placed laterally on the table due to the patient's size. The trexi and the trexi customer relations representative are used to elevate the patient's pannus. She was then prepped and draped in the usual sterile fashion. Once anesthesia was deemed adequate a Pfannenstiel skin incision was made with a scalpel and carried down to the underlying layer of fascia. Fascia was nicked in the midline and extended laterally using Alonso scissors. Bleeding vessels in the subcutaneous tissue are cauterized for hemostasis. The fascial edges were grasped with Ochsner is and the underlying tissue dissected off using sharp and blunt dissection. The rectus muscles are in the midline and the peritoneum was tented. The peritoneum was entered using Metzenbaum scissors. The incision is extended with blunt traction. The abdomen is palpated and no adhesions were noted. The Ha O retractor is placed. The bladder flap was grasped with a Peon and entered in the midline and extended laterally. The bladder flap was created digitally. The lower uterine segment was incised in a transverse fashion with the scalpel and extended laterally using blunt traction. The head is brought up into the incision and delivered while the events administrative assistant applied fundal pressure. The remainder of the infant was fully delivered and the cord is detangled. The placenta is removed using manual traction after gases and blood were drawn. The uterus lower edge is grasped with a ring forceps. The uterine incision was closed using 0 Monocryl in a running locked fashion. Same suture was used to imbricate. Good hemostasis is noted. The gutters are irrigated. The incision was again inspected and noted to be hemostatic. The Ha O retractor is removed. The fascia was closed using 0 Vicryl in a running fashion. The subcutaneous tissues are irrigated and noted to be hemostatic. The skin is closed using 4 0 Vicryl in a subcuticular fashion. Dermaflex and Mepilex dressing are placed. Sponge instrument and needle counts are correct per the OR staff and patient was given 3 g of Ancef prior to incision. Anesthesia: spinal Surgeon: Angelique Burk MD Estimated blood loss (mL): 215 Drains: Yes (ayoub) Packing: No Pathology: yes (placenta) Complications: No immediate complications Condition: stable Disposition: floor Findings: male with nuchal cord x 1; 7/9 Weight 7#15oz normal appearing uterus
--- NOTE | 2020-09-13 11:10 | PM.OBDSVD ---
DS: Admitting Diagnosis Admitting Diagnosis Admitting Diagnosis: IUP 38 wks GDMA2 PIH mordid obesity nonreassuring heart tracing MIL DS: Discharge Diagnosis Discharge Diagnosis (1) PIH ( induced hypertension): Code(s): O13.9 - Gestational [-induced] hypertension without significant proteinuria, unspecified trimester Status: Acute (2) Failure to progress in labor: Code(s): O62.2 - Other uterine inertia Status: Acute (3) Encounter for induction of labor: Code(s): Z34.90 - Encounter for supervision of normal , unspecified, unspecified trimester Status: Acute (4) 38 weeks gestation of : Code(s): Z3A.38 - 38 weeks gestation of Status: Acute (5) Gestational diabetes: Code(s): O24.419 - Gestational diabetes mellitus in , unspecified control Status: Acute (6) Morbid obesity with BMI of 70 and over, adult: Code(s): E66.01 - Morbid (severe) obesity due to excess calories; Z68.45 - Body mass index [BMI] 70 or greater, adult Status: Acute OB - DS: Summary OB Procedures : NST, PIH Mgmt and Ultrasound OB Procedures Intrapartum: low cervical, transverse OB Procedures: : None Peripartum Data Delivery Method: Section Procedures: Procedures Operation Date: 09/13/20 08:30 Actual Procedures Side Surgeon p Section Angelique Burk MD complications: none Status at Discharge Functional status at discharge: independent ambulation Overall status at discharge: patient is progressing back to baseline Time Spent with Patient Time attestation: Total time spent providing and/or coordinating discharge services: DS: Data Data Completed and Pending Pending studies at discharge: Pending at discharge 09/13/20 09:19 Surgical [PTH] Routine Labs on day of discharge: Labs from last 24 hours 09/13/20 09/13/20 09/13/20 07:58 07:41 05:39 POC Capillary Glucose 78 73 Blood Type AB Positive Antibody Screen Negative 09/13/20 09/13/20 09/13/20 02:20 01:17 00:17 POC Capillary Glucose 65 76 59 L* Blood Type Antibody Screen 09/12/20 09/12/20 09/12/20 22:42 21:35 20:24 POC Capillary Glucose 75 68 67 Blood Type Antibody Screen 09/12/20 09/12/20 09/12/20 19:26 18:24 17:08 POC Capillary Glucose 72 70 68 Blood Type Antibody Screen 09/12/20 09/12/20 09/12/20 15:51 14:49 13:49 POC Capillary Glucose 79 107 108 Blood Type Antibody Screen 09/12/20 09/12/20 12:48 11:29 POC Capillary Glucose 114 H 122 H Blood Type Antibody Screen Discharge Plan Discharge Attending physician on discharge: Angelique Burk Discharging Clinician: Angelique Burk Anticipated Discharge Date/Time: 09/16/20 11:11 Patient Disposition: Home, Self-Care Activity: may shower, may drive after 2 weeks and pelvic rest Diet: diabetic Wound Care Instructions: keep dressing dry Discharge Instructions: Education: Mom and Baby Guide, discharge video handout and Preeclampsia Handout Given to: Mother Follow-Up: Call your delivering provider's office for an appointment to be seen in: 1 Week Mom and baby should come to the [facility] for the follow-up appointment. Appointment Date/Time: September 18, 2020 at 9:00 am What to expect at your follow-up visit: Physical Assessment Call [phone] if you are unable to keep your appointment time. BREAST CARE: * Wear a snug supportive bra. * For engorgement discomfort: Breast Feeding: * Apply warm moist washcloths * Express milk as needed to relieve engorgement * Wear loose clothing * For sore nipples: * Identify correct latch-on * Apply warm moist washcloths before and after nursing * Air dry nipples after nursing * M
[2020-09-13] MEDS: MORPHINE SULFATE (*CRX) 2 MG/ML INJ 3 MG IV PUSH (11:57)
[2020-09-13] MEDS: OXYTOCIN 30 UNITS/NS 500 ML 30 UNITS/500 ML BAG 125 UNITS IV CONT (11:57)
--- NOTE | 2020-09-13 12:16 | PC.NURSE ---
Patient transferred to post room #277 per bed from labor and delivery. Support person present. Oriented to unit, room, information board, rooming in, admission packet and security measures. Patient verbalizes understanding.
[2020-09-13] MEDS: DEXTROSE 5%/0.45% SOD CHL 1,000 ML 125 ML IV CONT (16:31)
[2020-09-13] MEDS: DOCUSATE SODIUM 100 MG CAPSULE PO (16:31)
[2020-09-13] MEDS: KETOROLAC 30 MG/ML VIAL (*BKC) IV PUSH (16:50)
[2020-09-13] MEDS: SIMETHICONE 80 MG TAB.CHEW PO (21:42)
[2020-09-13] MEDS: IBUPROFEN 600 MG TABLET PO (21:44)
[2020-09-13] MEDS: HYDROcodone/acetaminophen (*CRX) 5-325 MG TABLET 1 TAB PO (21:45)
[2020-09-14] MEDS: IBUPROFEN 600 MG TABLET PO ×3 (05:19→23:43)
[2020-09-14] MEDS: HYDROcodone/acetaminophen (*CRX) 5-325 MG TABLET 1 TAB PO ×2 (05:20→09:06)
[2020-09-14 05:57] LABS: Basophils Percent Auto 0.2 % (0.2-1.2); Eosinophils Absolute Auto 0.2 K/mm3 (0-0.3); Eosinophils Percent Auto 1.8 % (0-4.4); Hematocrit 33.2 % (37.0-47.0); Hemoglobin 10.9 g/dL (12.0-15.0); Immature Granulocyte Absolute 0.08 K/mm3 (0.00-0.031); Immature Granulocyte Percent A 0.6 % (0-0.5); Lymphocytes Absolute Auto 2.72 K/mm3 (0.9-3.2); Lymphocytes Percent Auto 21.7 % (18.3-44.2); Mean Corpuscular HGB Conc 32.8 g/dl (32-36); Mean Corpuscular Hemoglobin 27.3 pg (26-34); Mean Corpuscular Volume 83.2 fl (80-100); Mean Platelet Volume 9.5 fl (7.4-10.4); Monocytes Absolute Auto 0.9 K/mm3 (0.1-0.6); Neutrophils Absolute Auto 8.6 K/mm3 (1.3-6.7); Neutrophils Percent Auto 68.7 % (45.5-73.1); Platelet Count Result 299 k/mm3 (150-375); Red Blood Count 3.99 M/mm3 (4.2-5.4); Red Cell Distribution Width 15.2 % (11.5-14.5); White Blood Count 12.6 K/mm3 (4.5-10.0)
[2020-09-14 05:59] VITALS: BP 142/86; PULSE 85; RESP 18; TEMP 36.8
[2020-09-14 06:41] VITALS: BP 137/82; PULSE 84; RESP 18; TEMP 36.8
--- NOTE | 2020-09-14 08:38 | WPDANLDPN2 ---
Anes-Prog Note L&D Date/Time: 09/14/20 08:38 Comfortable throughout: section Neuraxial method: spinal Epidural/Spinal procedure site: clean & non-tender Neuro status: Neuro function grossly intact. Cardiovascular status: normal Respiratory status: normal Airway patency: baseline Mental status: baseline Post-Op hydration status: normal Vital Signs: Last Vital Signs Temp 36.8 C 09/14/20 06:41 Pulse 84 09/14/20 06:41 Resp 18 09/14/20 06:41 BP 137/82 09/14/20 06:41 Pulse Ox 96 09/13/20 15:35 Pain score (VAS): 0 I/O: Intake & Output 09/13/20 09/14/20 09/14/20 23:59 07:59 15:59 Intake Total 700 Output Total 600 1100 Balance -600 -400 Post-procedural complaints: none Patient feedback: Patient satisfied with anesthetic care.
--- NOTE | 2020-09-14 08:39 | WPDANLDNPN2 ---
Anes-Prog Note L&D-Neuraxial Date/Time: 09/14/20 08:39 Neuraxial medications: intrathecal PF morphine Opiod-related complaints: none Patient feedback: Patient satisfied with post-operative pain management.
[2020-09-14] MEDS: DOCUSATE SODIUM 100 MG CAPSULE PO ×2 (09:07→16:57)
[2020-09-14] MEDS: MULTIVIT/MIN/PREN/FOL AC/IRON TABLET 1 TAB PO (09:09)
--- NOTE | 2020-09-14 11:16 | PM.OBPNVD ---
OB - PN: Subj Subjective Date/time seen: 09/14/20 11:16 Interval history: Epidural not working well. Patient in pain Patient comments: incisional pain [place] baby status: doing well OB - PN: Obj Data Labs CBC & Chem 7: 09/14/20 05:28 09/09/20 16:34 Labs: Laboratory Results - last 24 hr 09/14/20 05:28 WBC 12.6 H RBC 3.99 L Hgb 10.9 L Hct 33.2 L MCV 83.2 MCH 27.3 MCHC 32.8 RDW 15.2 H Plt Count 299 MPV 9.5 Immature Gran % (Auto) 0.6 H Neut % (Auto) 68.7 Lymph % (Auto) 21.7 [place] % (Auto) 7.0 Eos % (Auto) 1.8 Baso % (Auto) 0.2 Lymph # (Auto) 2.72 [place] # (Auto) 0.9 H Eos # (Auto) 0.2 Baso # (Auto) 0.0 Abs Immat Gran (auto) 0.08 H Absolute Neuts (auto) 8.6 H Absolute Nucleated RBC 0.0 Nucleated RBC % 0.0 OB - PN A/P Assessment and Plan (1) PIH ( induced hypertension): Code(s): O13.9 - Gestational [-induced] hypertension without significant proteinuria, unspecified trimester Status: Acute Assessment and Plan: no sx BP stable (2) Gestational diabetes: Code(s): O24.419 - Gestational diabetes mellitus in , unspecified control Status: Acute Assessment and Plan: check 2 hour GTT (3) delivery delivered: Code(s): O82 - Encounter for delivery without indication Status: Acute Assessment and Plan: continue care Time Spent With Patient Time: Total time spent is greater than 50% in coordination of care (as documented) at patient's floor/unit and/or counseling patient: Exam Narrative: Exam Narrative: fundus firm,nt bandage intact
[2020-09-14] MEDS: HYDROcodone/acetaminophen (*CRX) 10-325 MG TABLET 1 TAB PO ×4 (12:59→23:42)
[2020-09-14] MEDS: WITCH HAZEL 40 PADS 1 PAD (19:43)
[2020-09-14 19:50] VITALS: BP 131/85; PULSE 84; RESP 18; TEMP 37.2
[2020-09-14] MEDS: SIMETHICONE 80 MG TAB.CHEW PO ×2 (20:02→23:42)
[2020-09-15] MEDS: SIMETHICONE 80 MG TAB.CHEW PO ×5 (02:43→15:03)
[2020-09-15] MEDS: HYDROcodone/acetaminophen (*CRX) 10-325 MG TABLET 1 TAB PO ×4 (02:44→15:02)
[2020-09-15] MEDS: IBUPROFEN 600 MG TABLET PO ×3 (05:57→18:50)
[2020-09-15] MEDS: DOCUSATE SODIUM 100 MG CAPSULE PO ×2 (07:56→15:03)
[2020-09-15 08:00] VITALS: BP 133/69; PULSE 90; RESP 18; TEMP 37.2
--- NOTE | 2020-09-15 09:45 | PM.OBPNVD ---
OB - PN: Subj Subjective Date/time seen: 09/15/20 09:45 Interval history: Epidural not working well. Patient in pain Patient comments: no complaints and pain well controlled [place] baby status: doing well OB - PN: Obj Data Labs CBC & Chem 7: 09/14/20 05:28 09/09/20 16:34 OB - PN A/P Plan day: 2 Plan: routine care Time Spent With Patient Time: Total time spent is greater than 50% in coordination of care (as documented) at patient's floor/unit and/or counseling patient: Exam Narrative: Exam Narrative: inc bandage intact : Bimanual exam- vagina & uterus: other (Uterus firm, nt @U)
--- NOTE | 2020-09-15 11:49 | PC.NURSE ---
Breast pump provided due to sleeping and reluctant to feed. ]. Instructions given on breast pump care and usage, pumping schedule, nipple care, and collection and storage of breast milk. Encouraged [id number], breast massage and manual expression to stimulate supply. Pumping log provided and reviewed. Assessed patient for correct flange size, placement and draw. Patient verbalizes and demonstrates understanding of instructions.
--- NOTE | 2020-09-15 11:50 | PC.NURSE ---
Nipple shield provided to mother due to ineffective feeding. Instructions given on application and cleaning of shield. Discussed nipple shield precautions and possible complications. Patient able to return demonstration on proper application of shield. Discussed the need to initiate pumping if infant continues to nurse with the shield. Patient verbalizes understanding.
[2020-09-15] MEDS: HYDROcodone/acetaminophen (*CRX) 5-325 MG TABLET 1 TAB PO ×2 (11:59→18:50)
[2020-09-15 18:50] VITALS: BP 141/87; PULSE 80; RESP 20; TEMP 36.8
[2020-09-16] MEDS: HYDROcodone/acetaminophen (*CRX) 5-325 MG TABLET 1 TAB PO ×2 (01:50→08:35)
[2020-09-16] MEDS: IBUPROFEN 600 MG TABLET PO ×2 (01:50→08:36)
[2020-09-16 07:35] VITALS: BP 153/75; PULSE 86; RESP 18; TEMP 36.9; O2SAT 100
[2020-09-16] MEDS: DOCUSATE SODIUM 100 MG CAPSULE PO (08:35)
--- NOTE | 2020-09-16 09:26 | PM.OBPNVD ---
OB - PN: Subj Subjective Date/time seen: 09/16/20 09:26 Interval history: Epidural not working well. Patient in pain Patient comments: no complaints and pain well controlled [place] baby status: doing well OB - PN: Obj Data Labs CBC & Chem 7: 09/14/20 05:28 09/09/20 16:34 OB - PN A/P Plan day: 3 Plan: routine care, discharge home, follow up 6 weeks (and 1 week) and other (declines control; reviewed recommendation to not become for at least 9 months) Time Spent With Patient Time: Total time spent is greater than 50% in coordination of care (as documented) at patient's floor/unit and/or counseling patient: Exam Narrative: Exam Narrative: bandage intact : Bimanual exam- vagina & uterus: other (Uterus firm, nt @U)
--- NOTE | 2020-09-16 14:49 | PC.NURSE ---
Addendum entered by Sonia Thomas RN 09/16/20 15:00: Correction to note below. This baby is 38 weeks gestation, not 37.5. Original Note: 1000 Nurse present for feeding; mother reports baby latches but falls asleep. Baby has had less than required urine output; per protocol, supplement will be given after each breast feeding. Mother had started pumping yesterday. Will now pump after each breast feeding. Nurse assisted mother in football position; reviewed positioning, alignment, use of c-hold and nose to nipple latch on technique. baby awake and eager. several attempts required but baby able to latch, maintain latch, and demonstrate rhythmic sucking. baby nursed 10 minutes on each side; mother reports that is the longest he had stayed on the breast. Parents shown paced bottle feeding, and positions for burping. Baby took the bottle easily. Nurse explained to parents that at 37.5 wks gestation, baby may not be able to consistently give the strong effort at the breast he needs to nurse effectively. Nurse also had concerns from mother's statement, that possibly baby had not been consistently latching correctly for effective breast feeding. Baby also had not had the required wet diapers. therefore, supplementation will be given after each breast feeding, 25cc and increasing as baby wants. Mother will pump after each breast feeding until her milk comes in. Parents know to give any breast milk available as supplement, then use formula in addition as baby wants. Breast feeding pages in Mother-Baby Guide highlighted for home reference, as well as LC contact information. Mother instructed to call LC if her milk had not come in within a week. Parents will see Process Mold Technician later this week. Mother attentive and voiced understanding of information shared; FOB engaged in teaching and care of infant, and assisting with feedings.
== END 2020-09-16 12:07 | disposition home or self-care (01) | DRG 788 ==
LOC: ANHLDR 09-13 11:12 → ANHOB2 09-13 12:24
PROVIDERS: Admitting Provider Obstetrics & Gynecology Gynecology; Visit Provider Obstetrics & Gynecology Gynecology
PROC: 10D00Z1 Extraction of Products of Conception, Low, Open Approach (ICD-10-PCS; CPT 59514; principal; 2020-09-13 08:30)
DX: O24.429 Gestational diabetes mellitus in childbirth, unspecified control (principal); Z37.0 Single live birth; Z3A.38 38 weeks gestation of pregnancy; O62.2 Other uterine inertia; O99.214 Obesity complicating childbirth; E66.01 Morbid (severe) obesity due to excess calories; O99.284 Endocrine, nutritional and metabolic diseases complicating childbirth; E28.2 Polycystic ovarian syndrome; O99.52 Diseases of the respiratory system complicating childbirth; J45.909 Unspecified asthma, uncomplicated; O36.8330 Maternal care for abnormalities of the fetal heart rate or rhythm, third trimester, not applicable or unspecified; O32.4XX0 Maternal care for high head at term, not applicable or unspecified; O13.4 Gestational [pregnancy-induced] hypertension without significant proteinuria, complicating childbirth; O69.81X0 Labor and delivery complicated by cord around neck, without compression, not applicable or unspecified
CPT/HCPCS: 36415; 80053; 81001; 84550; 85025; 86592; 86850; 86900; 86901; 88307; A9270; J0131; J0290; J0690; J1815; J1885; J2270; J2274; J2405; J2590; J2795; J3010; J7030; J7120

== ENCOUNTER 2022-08-28 11:33 | Outpatient (CLI) | payer BC, SELFPAY ==
--- NOTE | ~2022-08-28 | US_ITS ---
EXAMINATION: US transvaginal DATE: 08/28/2022 11:59 INDICATION: Abdominal bloating, vaginal bleeding TECHNIQUE: Multiple endovaginal sonographic images of the pelvis were obtained. COMPARISON: None. FINDINGS: The uterus measures 8.1 x 3.7 x 4 cm. The endometrial complex measures 6 mm. The left ovary is not visualized however no left adnexal abnormality is seen. The right ovary measures 2.2 x 3.3 x 1.8 cm. There is normal vascular flow in the right ovary. There is no free fluid in the pelvis. IMPRESSION: 1. No sonographic correlate for the patient's symptoms. Reviewed, dictated and finalized at location A. OW WORKER HELPER
== END 2022-08-28 11:34 ==
PROVIDERS: PCP Nurse Practitioner; Visit Provider Nurse Practitioner
DX: R10.2 Pelvic and perineal pain (principal)
CPT/HCPCS: 76830

== ENCOUNTER 2022-10-05 20:52 | Emergency (ER) | payer BC, SELFPAY ==
[2022-10-05 21:02] VITALS: BP 145/79; PULSE 94; RESP 17; TEMP 36.6; O2SAT 97
--- NOTE | 2022-10-05 22:27 | ED.URI ---
HPI - URI/Sore Throat General Chief Complaint: Upper Respiratory Infection Stated Complaint: SOB, cough, URI Time Seen by Provider: 10/05/22 22:17 History of Present Illness HPI Narrative: Patient is a 27-year-old female with a history of asthma here for evaluation of sore throat, cough, nasal congestion and rhinorrhea over the past 2 days. Positive sick contacts, patient's son is sick with similar symptoms. Has attempted [place] lozenges. She denies any chest pain or shortness of breath. Presents today to the ED given that she is out of her inhalers for asthma and is requesting refills. Her primary care doctor close to her and is also requesting referral. Related Data Home Medications Medication Instructions Recorded Confirmed albuterol sulfate 90 mcg/actuation 2 puff inhalation QID PRN 08/10/19 09/09/20 aerosol inhaler Shortness Of Breath [id number]-[id number]-FA 1 mg 1 tablet PO DAILY 09/09/20 09/09/20 tablet Allergies Allergy/AdvReac Type Severity Reaction Status Date / Time Fish Containing Products Allergy Severe Anaphylactic Verified 10/05/22 21:04 Shock Review of Systems Review of Systems: Gen.: Denies fevers or chills Eyes: Denies eye pain or visual change ENT: Reports congestion and sore throat Respiratory: Reports cough. Denies shortness of breath CV: Denies chest pain or palpitations GI: Denies abdominal pain nausea, emesis or diarrhea denies burning, urgency, frequency or hematuria Musculoskeletal: Denies back pain or muscle pain Neuro: Denies numbness, tingling, weakness or focal weakness Skin: Denies rash Except as documented, all other systems reviewed and negative [facility] Past Medical History Medical History Asthma Gallbladder disease Gestational diabetes Morbid obesity with BMI of 70 and over, adult PCOS (polycystic ovarian syndrome) Surgical History Surgical History History of cholecystectomy Family History Family History Father Diabetes mellitus Mother Diabetes mellitus Sibling Diabetes mellitus Asthma Grandparent Lung cancer History of heart transplant Social History Social History Smoking status: Never smoker Second hand tobacco smoke exposure: No Alcohol intake: current Alcohol use details: Hasn't been drinking lately Substance use: never 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 Head: Normocephalic and atraumatic. EYES: PERRLA/EOMI, conjunctivae clear NOSE: No nasal drainage EARS: External ear normal in appearance THROAT: Tonsil stone noted in the right tonsil. Uvula is midline. NECK: Supple. No adenopathy, no masses. RESPIRATORY: Airway patent, respirations nonlabored. Clear to auscultation bilaterally, no rales, rhonchi, wheezing. CARDIOVASCULAR: Regular rate and rhythm without murmurs, rubs, or gallops. ABDOMINAL: Lungs are clear to auscultation throughout. Normoactive bowel sounds. Soft, nontender, nondistended. No rebound tenderness or guarding. MUSCULOSKELETAL: Extremities are warm and well-perfused. Moves all extremities well. No edema. NEURO: Normal speech. No focal neurologic deficits. SKIN: Skin is warm and dry. No rashes. PSYCHIATRIC: Normal affect/mood. Course Vital Signs Vital signs: Vital Signs Temperature 97.9 F 10/05/22 21:02 Pulse Rate 94 10/05/22 21:02 Respiratory Rate 17 10/05/22 21:02 Blood Pressure 145/79 H 10/05/22 21:02 Pulse Oximetry 97 10/05/22 21:02 Oxygen Delivery Room Air 10/05/22 21:02 Temperature 97.9 F 10/05/22 21:02 Pulse Rate 94 10/05/22 21:02 Respira
== END 2022-10-05 22:55 | disposition home or self-care (01) ==
PROVIDERS: Emergency Provider Physician Assistant
DX: J45.909 Unspecified asthma, uncomplicated (principal); E28.2 Polycystic ovarian syndrome; E66.01 Morbid (severe) obesity due to excess calories; Z68.45 Body mass index [BMI] 70 or greater, adult
CPT/HCPCS: 99281

== ENCOUNTER 2023-09-22 13:26 | Outpatient (CLI) | payer BC, SELFPAY ==
--- NOTE | ~2023-09-22 | US_ITS ---
EXAMINATION: US transvaginal DATE: 09/22/2023 13:53 INDICATION: Pelvic and perineal pain TECHNIQUE: Multiple endovaginal sonographic images of the pelvis were obtained. COMPARISON: 08/28/2022 FINDINGS: Uterus: 8.8 x 4.1 x 4.8 cm. Endometrial complex measures 8 mm. Right Ovary: Not visualized. No adnexal mass Left Ovary: Not visualized. No adnexal mass There is no free fluid in the pelvis. IMPRESSION: Bilateral ovaries not visualized. Otherwise normal pelvic sonogram findings. Reviewed, dictated and finalized at location K. [employer]
== END 2023-09-22 13:27 ==
LOC: MICIMG 13:27
PROVIDERS: PCP Nurse Practitioner; Visit Provider Nurse Practitioner
DX: R10.2 Pelvic and perineal pain (principal)
CPT/HCPCS: 76830

== ENCOUNTER 2023-11-19 15:20 | Emergency (ER) | payer BC, SELFPAY ==
--- NOTE | 2023-11-19 15:38 | ED.URI ---
HPI - URI/Sore Throat General Chief Complaint: Upper Respiratory Infection Stated Complaint: nasal congestion,both ears popping Time Seen by Provider: 11/19/23 15:45 Source: patient Mode of arrival: ambulatory Limitations: no limitations History of Present Illness HPI Narrative: Joleen is 28-year-old female patient presenting to the clinic today with complaints of nasal congestion and popping in both of her ears is been going on for the past few days. MD elicited complaint: sore throat and nasal congestion Related Data Home Medications Medication Instructions Recorded Confirmed albuterol sulfate 90 mcg/actuation 2 puff inhalation QID PRN 08/10/19 09/09/20 aerosol inhaler Shortness Of Breath amitriptyline 25 mg tablet 25 mg PO HS 11/19/23 11/19/23 norethindrone 1 mg-ethinyl 1 tablet PO DAILY 11/19/23 11/19/23 estradiol 10 mcg (24)-iron 10 mcg(2) tablet (Lo Loestrin Fe) semaglutide (weight loss) 0.25 0.25 mg subcut WEEKLY 11/19/23 11/19/23 mg/0.5 mL subcutaneous pen injector (Wegovy) Allergies Allergy/AdvReac Type Severity Reaction Status Date / Time Fish Containing Products Allergy Severe Anaphylactic Verified 11/19/23 15:23 Shock Review of Systems Review of Systems: Pertinent positives per HPI. Patient denies any fever, chills, rash, headache, visual changes, dizziness, cough, shortness of breath, chest pain, palpitations, nausea, vomiting, diarrhea, constipation, abdominal pain, or any urinary issues. [facility] Past Medical History Medical History Asthma Gallbladder disease Gestational diabetes Morbid obesity with BMI of 70 and over, adult PCOS (polycystic ovarian syndrome) Surgical History Surgical History History of cholecystectomy Family History Family History Father Diabetes mellitus Mother Diabetes mellitus Sibling Diabetes mellitus Asthma Grandparent Lung cancer History of heart transplant Social History Social History Smoking status: Never smoker Second hand tobacco smoke exposure: No Alcohol intake: current Alcohol use details: Hasn't been drinking lately Substance use: never 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 There is no relevant family history pertinent to the patient complaint. Exam Narrative: General: Well-developed, well nourished, in no apparent distress Head: Normocephalic, atraumatic Eyes: Pupils equally round and reactive to light bilaterally, EOM intact, sclera and conjunctive clear, no discharge, lids normal Ears: TMs intact and congestion with mild bulging, ear canals clear, no drainage, grossly hearing normal. Nose: Nares patent, clear discharge, no inflammation, no sinus tenderness. Mouth: Oral pharynx without lesions or masses, good dentition, MMM. Neck: Supple, trachea midline, no enlargement of anterior or posterior cervical nodes, no thyroid masses or goiter palpable. Cardio: Regular rate and rhythm, s1 and s2 normal, no murmur appreciated. Resp: Clear to auscultation bilaterally, no rhonchi, rales, wheezing or rubs Course Course Emergency Course: Portions of this record may have been created with voice recognition software. Level of Care: Express Care Visit Vital Signs Vital signs: Vital signs reviewed MDM - URI/Sore Throat MDM Narrative Medical decision making narrative: At the time of visit patient is resting comfortably on the exam table. Patient appears to be nontoxic. Plan: I suspect patient has allergic rhinitis with eustachian
[2023-11-19 15:41] VITALS: BP 151/89; PULSE 82; RESP 16; TEMP 37.2; O2SAT 98
== END 2023-11-19 15:56 | disposition home or self-care (01) ==
PROVIDERS: Emergency Provider Nurse Practitioner Family; PCP Nurse Practitioner Family
DX: H69.83 Other specified disorders of Eustachian tube, bilateral (principal); J30.89 Other allergic rhinitis; Z79.899 Other long term (current) drug therapy
CPT/HCPCS: 99213; G0463

== ENCOUNTER 2024-01-12 12:48 | Outpatient (CLI) | payer BC, SELFPAY ==
--- NOTE | ~2024-01-12 | US_ITS ---
EXAMINATION: US pelvic complete w TV DATE: 01/12/2024 13:24 INDICATION: Abnormal uterine bleeding. TECHNIQUE: Multiple transabdominal and transvaginal sonographic images of the pelvis were obtained. COMPARISON: Ultrasound 09/22/2023 FINDINGS: TRANSABDOMINAL ULTRASOUND: The uterus measures 8.4 x 3.7 x 5.1 cm. There is no free fluid in the pelvis. TRANSVAGINAL ULTRASOUND: The endometrial complex measures 3 mm in thickness. The right ovary measures 2.7 x 1.9 x 4.1 cm. Ther e is normal vascular flow in right ovary. The left ovary is not visualized. IMPRESSION: 1. Normal uterus and right ovary. 2. Left ovary not visualized. Reviewed, dictated and finalized at location A.
== END 2024-01-12 12:49 ==
LOC: MICIMG 12:49
PROVIDERS: PCP Nurse Practitioner; Visit Provider Nurse Practitioner
DX: N93.8 Other specified abnormal uterine and vaginal bleeding (principal)
CPT/HCPCS: 76830; 76856

== ENCOUNTER 2025-03-12 16:39 | Emergency (ER) | payer BC, SELFPAY ==
--- NOTE | 2025-03-12 16:44 | ED_ITS ---
HPI - URI/Sore Throat General Chief Complaint: Ear Stated Complaint: Ears Irritation/Sinus Time Seen by Provider: 03/12/25 17:00 Source: patient Mode of arrival: ambulatory Limitations: no limitations History of Present Illness HPI Narrative: Joleen is a 29-year-old female patient presenting to the clinic today with complaints of bilateral ear pain and sinus congestion x3 days. She reports having runny nose with clear drainage. Denies any fevers, chills, body aches. No shortness of breath or chest pain. Her son is also ill and being seen in the clinic today. Related Data Home Medications ?Medication ?Instructions ?Recorded ?Confirmed ?Last Taken ?Type albuterol sulfate 90 mcg/actuation 2 puff inhalation QID PRN 08/10/19 09/09/20 Unknown History aerosol inhaler Shortness Of Breath drospirenone (contraceptive) 4 mg 03/12/25 Unknown History () tablet (Slynd) epinephrine 0.3 mg/0.3 mL 03/12/25 Unknown History injection, auto-injector Allergies Allergy/AdvReac Type Severity Reaction Status Date / Time Fish Containing Products Allergy Severe Anaphylactic Verified 03/12/25 17:13 Shock Review of Systems Review of Systems: Pertinent positives per HPI. Patient denies any fever, chills, rash, headache, visual changes, dizziness, cough, shortness of breath, chest pain, palpitations, nausea, vomiting, diarrhea, constipation, abdominal pain, or any urinary issues. [facility] Past Medical History Medical History Gestational diabetes Morbid obesity with BMI of 70 and over, adult PCOS (polycystic ovarian syndrome) Asthma Gallbladder disease Surgical History Surgical History History of cholecystectomy Family History Family History Father Diabetes mellitus Mother Diabetes mellitus Sibling Diabetes mellitus Asthma Grandparent Lung cancer History of heart transplant Social History Social History Smoking status: Never smoker Second hand tobacco smoke exposure: No Alcohol intake: current Alcohol use details: Hasn't been drinking lately Substance use: never 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 There is no relevant family history pertinent to the patient complaint. Exam Narrative: General: Well-developed, morbidly obese, in no apparent distress Head: Normocephalic, atraumatic Eyes: Pupils equally round and reactive to light bilaterally, EOM intact, sclera and conjunctive clear, no discharge, lids normal Ears: TMs intact and congestion, ear canals clear, no drainage, grossly hearing normal. Nose: Nares patent, clear nasal discharge, mild inflammation, no sinus tenderness. Mouth: Oral pharynx without lesions or masses, good dentition, MMM. Postnasal drip Neck: Supple, trachea midline, no enlargement of anterior or posterior cervical nodes, no thyroid masses or goiter palpable. Cardio: Regular rate and rhythm, s1 and s2 normal, no murmur appreciated. Resp: Clear to auscultation bilaterally, no rhonchi, rales, wheezing or rubs Course Course Emergency Course: Portions of this record may have been created with voice recognition software. Level of Care: Express Care Visit Vital Signs Vital signs: Vital Signs Temperature 36.4 C 03/12/25 16:57 Pulse Rate 76 03/12/25 16:57 Respiratory Rate 16 03/12/25 16:57 Blood Pressure 122/66 03/12/25 16:57 Pulse Oximetry 98 03/12/25 16:57 Oxygen Delivery Room Air 03/12/25 16:57 Temperature 36.4 C 03/12/25 16:57 Pulse Rate 76 03/12/25 16:57 Respiratory Rate 16 03/12/25 16:57 Blood Pressure 122/66 03/12/25 16:57 Pulse Oximetry 98 03/12/25 16:57 Oxygen Delivery Room Air 03/12/25 16:57 Vital signs reviewed MDM - URI/Sore Throat MDM Narrative Medical decision making narrative: At the time of visit patient is resting comfortably on the exam table. Patient appears to be nontoxic. Plan: I suspect patient has a URI/otalgia. Prescription for prednisone was sent to the pharmacy. Supportive measures were discussed with the patient and they voiced understanding discharge instructions and agrees to treatment plan. Return precautions reviewed Differential Diagnosis Differential diagnosis: Likely upper respiratory infection, otitis media, sinusitis, viral infection, bronchitis, influenza, pharyngitis and other (COVID) Discharge Plan Discharge Clinical Impression: URI (upper respiratory infection) Qualifiers: URI type: unspecified URI Qualified Code(s): J06.9 - Acute upper respiratory infection, unspecified Acute serous otitis media Qualifiers: Laterality: bilateral Recurrence: not specified as recurrent Qualified Code(s): H65.03 - Acute serous otitis media, bilateral Patient Disposition: Home Condition: Stable Instructions: Antibiotic Form, Earache (ED), Cold Symptoms (ED) Additional Instructions: Take prescription medications only as prescribed-prednisone Increase fluids and stay well hydrated Tylenol/motrin for pain/fever Flonase and OTC antihistamines as directed Vicks vapor rub to open sinuses Sinus rinses for congestion Cepacol spray, cough drops, throat lozenges, warm tea with honey/lemon, gargle salt water to soothe throat BRAT diet for diarrhea Clear liquids x 24 hours then advance as tolerated for nausea/vomiting Go to the ED if you develop a worsening in your condition- high fever not controlled by Tylenol or Motrin, dehydration, weakness, lethargy, shortness of breath, or chest pain. Follow up with your PCP in 3-5 days if symptoms persist. Patient Language: Greenlandic Prescriptions: New prednisone 20 mg tablet 40 mg PO DAILY 5 Days Qty: 10 0RF No Action epinephrine 0.3 mg/0.3 mL auto-injector Slynd 4 mg (28) tablet albuterol sulfate 90 mcg/actuation Hfa Aerosol Inhaler 2 puff INHALATION QID PRN (Reason: Shortness Of Breath) Follow-up/Referrals: Blake,Vilma Li APRN [Primary Care Provider] - Time of Disposition: 17:05 Quality NIHSS Nursing Documentation ED NIHSS nursing documentation: reviewed/agree
[2025-03-12 16:57] VITALS: BP 122/66; PULSE 76; RESP 16; TEMP 36.4; O2SAT 98
== END 2025-03-12 17:22 | disposition home or self-care (01) ==
PROVIDERS: Emergency Provider Nurse Practitioner Family; PCP Nurse Practitioner Family
DX: J06.9 Acute upper respiratory infection, unspecified (principal); H65.03 Acute serous otitis media, bilateral; J45.909 Unspecified asthma, uncomplicated; E28.2 Polycystic ovarian syndrome; E66.01 Morbid (severe) obesity due to excess calories; Z68.43 Body mass index [BMI] 50.0-59.9, adult
CPT/HCPCS: 99213; G0463

== ENCOUNTER 2025-03-13 14:20 | Emergency (ER) | payer BC, SELFPAY ==
[2025-03-13 14:32] VITALS: BP 143/60; PULSE 87; RESP 16; TEMP 36.4; O2SAT 97
[2025-03-13 14:49] LABS: EDCOVIDSCREEN Negative (Negative); EDINFLUASCREEN Negative (Negative); EDINFLUBSCREEN Negative (Negative)
--- NOTE | 2025-03-13 15:57 | ED_ITS ---
HPI - URI/Sore Throat General Chief Complaint: Upper Respiratory Infection Stated Complaint: loss of taste and smell Time Seen by Provider: 03/13/25 14:55 Source: patient and RN notes reviewed Mode of arrival: ambulatory Limitations: no limitations History of Present Illness HPI Narrative: 29-year-old female presents Express Care complaining of upper respiratory symptoms last 4-5 days. She says she has a cough, congestion, ear fullness. Patient was here yesterday and was prescribed prednisone to help with drainage. Patient returns today because she developed loss of taste and smell. Patient went to her ENT today for her loss of smell but since she had loss of taste they recommended she get a COVID test first to rule out any viral illness that might cause the symptoms. 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 Patient started prednisone today but has not noticed a difference yet. Patient denies any new or worsening symptoms. Related Data Home Medications ?Medication ?Instructions ?Recorded ?Confirmed ?Last Taken ?Type albuterol sulfate 90 mcg/actuation 2 puff inhalation QID PRN 08/10/19 09/09/20 Unknown History aerosol inhaler Shortness Of Breath drospirenone (contraceptive) 4 mg 03/12/25 Unknown History (28) tablet (Slynd) epinephrine 0.3 mg/0.3 mL 03/12/25 Unknown History injection, auto-injector Allergies Allergy/AdvReac Type Severity Reaction Status Date / Time Fish Containing Products Allergy Severe Anaphylactic Verified 03/13/25 14:29 Shock Review of Systems Review of Systems: CONSTITUTIONAL: Denies fever, chills, body aches, or sweats. EYES: Denies visual changes, redness, or discharge. ENT: Positive for rhinorrhea, congestion, ear fullness, loss of taste and smell. Negative for sore throat, or otalgia. CARDIOVASCULAR: Denies chest pain, lightheadedness, dizziness, palpitations, or edema. RESPIRATORY: Positive for cough. Negative for dyspnea or wheezing. GASTROINTESTINAL: Denies abdominal pain, nausea, vomiting, or diarrhea. GENITOURINARY: Denies dysuria or hematuria. SKIN: Denies rash or itching. MUSCULOSKELETAL: Denies back pain, joint pain, or myalgia. NEUROLOGIC: Denies headache, numbness, or weakness. PSYCHIATRIC: Denies anxiety or depression. All other systems reviewed are negative, except as documented in HPI. [facility] Past Medical History Medical History Gestational diabetes Morbid obesity with BMI of 70 and over, adult PCOS (polycystic ovarian syndrome) Asthma Gallbladder disease Surgical History Surgical History History of cholecystectomy Family History Family History Father Diabetes mellitus Mother Diabetes mellitus Sibling Diabetes mellitus Asthma Grandparent Lung cancer History of heart transplant Social History Social History Smoking status: Never smoker Second hand tobacco smoke exposure: No Alcohol intake: current Alcohol use details: Hasn't been drinking lately Substance use: never 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 There is no relevant family history pertinent to the patient complaint. Exam Narrative: GENERAL: This is a well-nourished, well-developed adult, in no apparent distress. They are non ill-appearing, nontoxic appearing. Patient is morbidly obese. Physical exam limited due to large body habitus. HEAD: normocephalic, atraumatic. EYES: Sclera clear/white. Vision is grossly intact. Conjunctiva normal bilaterally. Extraocular movements intact. EARS: External ears normal, auditory canals clear and without drainage, TMs without erythema or perforation. Ear effusions present bilaterally. Hearing grossly intact. NOSE: External nose normal with no obvious nasal discharge, nasal turbinates erythematous, no rhinorrhea. THROAT: Mucous membranes moist, posterior pharynx without redness or swelling, no exudate. Uvula is midline. Postnasal drip present. NECK: Neck supple, non-tender without lymphadenopathy, masses or thyromegaly. CARDIOVASCULAR: Regular rate and rhythm without murmurs, gallops, or rubs. RESPIRATORY: Clear to auscultation. Breath sounds equal bilaterally. No wheezes, rales, or rhonchi. SKIN: warm, Dry, intact with no suspicious lesions or rash, good texture and turgor. NEURO: awake, alert, and oriented to person, place and time. There were no obvious focal neurologic abnormalities. EXTREMITIES: No joint tenderness, effusion, or edema noted. BACK: Nontender without deformity. Course Course Emergency Course: Portions of this record may have been created with voice recognition software Level of Care: Express Care Visit Vital Signs Vital signs: Vital Signs Temperature 97.5 F L 03/13/25 14:32 Pulse Rate 87 03/13/25 14:32 Respiratory Rate 16 03/13/25 14:32 Blood Pressure 143/60 H 03/13/25 14:32 Pulse Oximetry 97 03/13/25 14:32 Oxygen Delivery Room Air 03/13/25 14:32 Temperature 97.5 F L 03/13/25 14:32 Pulse Rate 87 03/13/25 14:32 Respiratory Rate 16 03/13/25 14:32 Blood Pressure 143/60 H 03/13/25 14:32 Pulse Oximetry 97 03/13/25 14:32 Oxygen Delivery Room Air 03/13/25 14:32 MDM - URI/Sore Throat MDM Narrative Medical decision making narrative: Rapid COVID and flu were negative. Likely patient has viral URI. Loss of taste and smell likely related to congestion and swelling of her upper respiratory tract. Will continue current treatment. Discussed physical exam findings. Advised supportive measures and signs/symptoms to go to the ER. Pt is appropriate for outpt treatment and f/u. Differential Diagnosis Differential diagnosis: Likely upper respiratory infection, otitis media, viral infection, influenza and other (COVID-19) Lab Data Attestation: I reviewed the patient's lab results. Labs: Lab Results 03/13/25 Range/Units 14:33 POC Influenza A Ag Negative (Negative) POC Influenza B Ag Negative (Negative) POC SARS CoV-2 Ag Negative (Negative) Discharge Plan Discharge Clinical Impression: Upper respiratory infection Qualifiers: URI type: unspecified viral URI Qualified Code(s): J06.9 - Acute upper respiratory infection, unspecified Patient Disposition: Home Condition: Stable Instructions: Antibiotic Form, Upper Respiratory Infection (ED) Additional Instructions: Your rapid COVID and flu were negative today. Is likely a viral illness. Viral illnesses may last up to the 7-14 days. Please follow-up with your ENT for further evaluation and management of your loss of taste and smell. It is likely is related to the congestion your having. Please continue to take Flonase on a as needed for congestion. You also take Zyrtec or Claritin as needed for congestion. Follow-up PCP in 3-5 days. May take Tylenol or ibuprofen as needed for pain or fevers. Go to the ER if you developed any chest pain, shortness of breath, difficulty breathing, fevers, worsening symptoms or any other concerns. Patient Language: Japanese Prescriptions: No Action prednisone 20 mg tablet 40 mg PO DAILY 5 Days Qty: 10 0RF epinephrine 0.3 mg/0.3 mL auto-injector Slynd 4 mg (28) tablet albuterol sulfate 90 mcg/actuation Hfa Aerosol Inhaler 2 puff INHALATION QID PRN (Reason: Shortness Of Breath) Follow-up/Referrals: Blake,Vilma Li APRN [Primary Care Provider] - Time of Disposition: 15:18
== END 2025-03-13 15:20 | disposition home or self-care (01) ==
PROVIDERS: PCP Nurse Practitioner Family
DX: J06.9 Acute upper respiratory infection, unspecified (principal); Z20.822 Contact with and (suspected) exposure to COVID-19; E28.2 Polycystic ovarian syndrome; J45.909 Unspecified asthma, uncomplicated; E66.01 Morbid (severe) obesity due to excess calories; Z68.44 Body mass index [BMI] 60.0-69.9, adult
CPT/HCPCS: 87426; 87804; 99212; G0463